=== PATIENT | female | born 1985 | race Caucasian/White ===

== ENCOUNTER 2022-10-30 06:52 | Outpatient (CLI) | payer OTHER, SELFPAY ==
--- NOTE | 2022-10-30 07:17 | US_ITS ---
WS: [id number] TRANSABDOMINAL PELVIC AND TRANSVAGINAL PELVIC ULTRASOUND HISTORY: ABDOMINAL PAIN COMPARISON: None available. Uterus: 9.0 cm x 6.2 cm x 4.9 cm. Top normal size uterus is anteverted. Small nabothian cysts. No fib roid or uterine mass. Endometrium: 1.0 cm. Normal endometrium. No mass or increased vascularity. Right ovary: 6.5 cm x 6.1 cm x 4.5 cm. Enlarged ovary with a complex cyst with thick wall thick wall cyst measures 3.9 x 5.3 x 4.1 cm. There is through transmission. This ovary sits deep within the cul- de-sac. There is normal vascularity within the adjacent ovary. Left ovary: 9.5 cm x 6.8 cm x 9.6 cm. Enlarged ovary with multiple homogeneous masses with through tr ansmission. There are multiple complex masses by septations. There is through transmission. The largest complex cystic mass measures 5.3 x 4.0 x 5.2 cm. The adjacent ovary has normal vasculari ty. No free fluid. US/US pelvic with transvaginal IMPRESSION: 1. Bilateral ovarian complex cystic masses. Most significant enlargement invol ves the LEFT ovary where there are multiple homogeneous masses with septations (O-RADS 2). 2. Recommendation: Even though these are probably benign and related to endome triomas or complex hemorrhagic cysts, 8-12 week transvaginal pelvic ultrasound follow-up is recommended. If no improvement at the 8-12 week follow-up ultrasou nd evaluation CERTIFIED PHARMACY TECH evaluation may be necessary.
== END 2022-10-30 06:53 | disposition home or self-care (01) ==
LOC: RAD 06:54
PROVIDERS: Family Provider Family Medicine; PCP Family Medicine; Visit Provider Nurse Practitioner
DX: N83.8 Other noninflammatory disorders of ovary, fallopian tube and broad ligament (principal)
CPT/HCPCS: 76830; 76856

== ENCOUNTER 2022-11-10 22:18 | Inpatient (IN) | payer OTHER, SELFPAY ==
[2022-11-10 22:37] VITALS: BP 107/72; PULSE 76; RESP 22; TEMP 36.2; O2SAT 99; BMI 33.4
--- NOTE | 2022-11-10 22:58 | CTR_ITS ---
PROCEDURE INFORMATION: Exam: CT Abdomen And Pelvis With Contrast Exam date and time: 11/10/2022 11:58 PM Age: 37 years old Clinical indication: Abdominal pain; Localized; Prior surgery; Surgery type: Appy; Patient HX: C/O severe lower abd/pelvic pain. ; Additional info: Abd pain TECHNIQUE: Imaging protocol: Computed tomography of the abdomen and pelvis with contrast. Radiation optimization: All CT scans at this facility use at least one of these dose optimization techniques: automated exposure control; mA and/or kV adjustment per patient size (includes targeted exams where dose is matched to clinical indication); or iterative reconstruction. Contrast material: OMNI 350; Contrast volume: 100 ml; Contrast route: INTRAVENOUS (IV); COMPARISON: 1. CT abdomen pelvis w con* [id number] 03/29/2018 9:20 PM 2. US pelvic with transvaginal 10/30/2022 7:32 AM RADIATION DOSE METRICS: Total DLP (mGy-cm): 921.9 FINDINGS: Liver: Normal. No mass. Gallbladder and bile ducts: Normal. No calcified stones. No ductal dilation. Pancreas: Normal. No ductal dilation. Spleen: Normal. No splenomegaly. Adrenal glands: Normal. No mass. Kidneys and ureters: Normal. No hydronephrosis. Stomach and bowel: Negative for bowel obstruction. No evidence of bowel perforation. Negative for pneumatosis intestinalis. No focal bowel mass. Appendix: Appendectomy. Intraperitoneal space: Small to moderate volume scattered pelvic free fluid without loculation. Negative for pneumoperitoneum. Scattered small volume free fluid in the lower abdominal mesentery. Vasculature: Unremarkable. No abdominal aortic aneurysm. Lymph nodes: Unremarkable. No enlarged lymph nodes. Urinary bladder: Unremarkable as visualized. Reproductive: Unremarkable size and appearance of the uterus. Negative for endometrial thickening. Complex multilocular bilateral cystic adnexal masses larger on left than right. Left-sided lesion about 6.3 cm x 5.2 cm in the transaxial plane. Right-sided lesion about 7.3 cm x 4.6 cm. Bones/joints: Unremarkable. No acute fracture. Soft tissues: Unremarkable. CT/CT abdomen pelvis w con* [id number] IMPRESSION: 1. Large multilocular cystic bilateral adnexal masses are redemonstrated when compared with recent pelvic ultrasound. No significant changes are seen, although difficult to compare across different modalities. 2. Free fluid seems to be increased when compared to the recent pelvic ultrasound of uncertain significance. Cyst rupture, torsion, or sequela of ovarian neoplasm cannot be excluded.
--- NOTE | 2022-11-10 22:59 | ED_ITS ---
HPI - Abdominal Pain General: Chief Complaint: Abdominal Pain Stated Complaint: ABD Pain Time Seen by Provider: 11/10/22 22:49 Source: patient Mode of arrival: ambulatory Limitations: no limitations History of Present Illness: 37-year-old female states that an hour ago she started having severe sudden left lower quadrant and suprapubic abdominal pain. States pain is very sharp in nature rates it a 9 out of 10 she is also had nausea vomiting she has had an appendectomy states she has had a history of ovarian cysts she denies any vaginal bleeding denies any worsening proving factors. Associated Symptoms: Reports nausea and vomiting; Denies chills, dysuria and fever(s) Review of Systems Const: Denies: fever(s), chills, body aches or change in appetite Eyes: Denies: blurry vision or eye discomfort ENMT: Denies: throat pain or dental pain Card: Denies: chest pain Resp: Denies: dyspnea GI: Reports: abdominal pain, nausea and vomiting : Denies: dysuria Musc: Denies: neck pain or back pain Skin/Breast: Denies: rash Neuro: Denies: headache(s) Psych: Denies: depression Ranjit/Lymph: Denies: easy bruising All/Imm: Denies: urticaria PFSH ED PFSH: Medical History Blood type O- Essential hypertension Not on medication. Fluctuates with weight. Surgical History H/O arthroscopic knee surgery (~2002) Right knee scope and cartilage removal History of appendectomy (~03/2018) Hx of breast reduction, elective (~1997) Bilateral. Performed at [facility] in [place], [place]. Family History Father Hypertension Heart disease Grandmother Diabetes PATERNAL Mother Hypercholesteremia Grandfather Hypercholesteremia MATERNAL Stroke MATERNAL Family/Other Breast cancer MATERNAL AUNTS Prostate cancer PATERNAL UNCLE Mesothelioma PATERNAL UNCLE Social History Smoking and tobacco status: former smoker Quit status (tobacco): has quit using tobacco Year quit tobacco: 2008 Former qu it date comment: CHEWED TOBACCO X 1 YEAR Alcohol intake: current Alcohol intake frequency: holidays/special occasions only Additional social history: well- balanced meals Physical Exam Const: COMMON NORMALS: no acute distress, patient oriented x3 and healthy appearing HENMT: COMMON NORMALS: normocephalic and atraumatic HEAD & SCALP: normocephalic and atraumatic Eye: COMMON NORMALS: Equal, round and reactive pupils present and EOMs intact bilaterally PUPIL: Yes Equal, round and reactive pupils present Neck/C-Spine: COMMON NORMALS: full ROM and supple Chest: COMMONS NORMALS: normal inspection of the chest and normal palpation of entire chest wall Resp: COMMON NORMALS: normal respiratory effort, No retractions, No use of accessory muscles and clear to auscultation bilaterally AUSCULTATION: clear to auscultation bilaterally Cardio: COMMON NORMALS: regular rate, regular rhythm and No murmurs present (Cardio) RATE: regular rate RHYTHM: regular rhythm GI: COMMON NORMALS: Normal to inspection, nondistended, normoactive bowel sounds present, Soft to palpation and no masses PALPATION: Yes Soft to palpation OTHER: llq and suprapubic tenderness Extremity: COMMON NORMALS: normal to inspection and full ROM Neuro: COMMON NORMALS: patient oriented x3, moves all extremities and no focal motor deficits Psych: COMMON NORMALS: mental status grossly normal, Normal thought process present and cooperative THOUGHT PROCESS: Normal thought process present Skin: COMMON NORMALS: no rashes or lesions noted and no wounds GENERAL SKIN EXAM: no rashes or lesions noted Course Vital Signs: Vital signs: Vital Signs Temperature 97.1 F L 11/10/22 22:37 Pulse Rate 81 11/11/22 03:30 Respiratory Rate 16 11/11/22 03:30 Blood Pressure 125/92 11/11/22 03:30 Pulse Oximetry 92 11/11/22 03:30 Oxygen Delivery Me thod 11/10/22 22:37 MDM - Abdominal Pain Medical Decision Making Patient presents here with abdominal pain likely from ovarian masses she has no signs of torsion but is having quite a bit of pain here I did speak to Dr. Yeh and will admit at this time. Lab Data 11/10/22 23:00 11/10/22 23:00 Labs/Radiology: Radiology Impressions Abdomen/Pelvis CT 11/10/22 22:58 IMPRESSION: 1. Large multilocular cystic bilateral adnexal masses are redemonstrated when compared with recent pelvic ultrasound. No significant changes are seen, although difficult to compare across different modalities. 2. Free fluid seems to be increased when compared to the recent pelvic ultrasound of uncertain significance. Cyst rupture, torsion, or sequela of ovarian neoplasm cannot be excluded. ADDENDUM: 11/11/22 0118 THIS REPORT CONTAINS FINDINGS THAT MAY BE CRITICAL TO PATIENT CARE. The findings were verbally communicated via telephone conference with SUSY VAUGHN at 1:17 AM SECOND WATCH SERGEANT on 11/11/2022. The findings were acknowledged and understood. Pelvic/Transvag US 11/11/22 01:16 IMPRESSION: 1. Redemonstration of bilateral adnexal heterogenous complex cystic masses measuring up to approximately 7.5 cm in diameter on the left and 8.0 cm in diameter on the right. These lesions appear mildly increased in size in complexity when compared with the prior exam performed on 10/30/2022. Findings are nonspecific, differential includes peritoneal inclusion cysts, bilateral endometriomas, bilateral paraovarian/paratubal complex cysts, and less likely tubal or ovarian carcinoma, and sarcoma. An MRI of the pelvis may be helpful for further evaluation if clinically indicated. 2. Uterine fibroids measuring up to 3.6 cm in diameter. 3. [id number] free fluid. ADDENDUM: 11/11/22 [id number] Color Doppler flow and phasic waveforms are demonstrated in the bilateral adnexa/soft tissue that is presumed to represent ovarian tissue. Laboratory Results WBC 7.9 10^3/uL (4.0-10.0) 11/10/22 23:00 RBC 4.62 10^6/uL (4.1-5.3) 11/10/22 23:00 Hgb 12.8 g/dL (11.5-15.3) 11/10/22 23:00 Hct 39.8 % (37.0-47.0) 11/10/22 23:00 MCV 86.1 fl (81-99) 11/10/22 23:00 MCH 27.7 pg (28.0-34.0) L 11/10/22 23:00 MCHC 32.2 g/dL (30.0-36.0) 11/10/22 23:00 RDW 13.1 % (12.1-15.1) 11/10/22 23:00 Plt Count 305 10^3/cmm (130-400) 11/10/22 23:00 MPV 8.4 fL (7.4-10.4) 11/10/22 23:00 Neut % (Auto) 75.4 % 11/10/22 23:00 Lymph % (Auto) 17.5 % 11/10/22 23:00 [place] % (Auto) 6.0 % 11/10/22 23:00 Eos % (Auto) 0.5 % 11/10/22 23:00 Baso % (Auto) 0.1 % 11/10/22 23:00 Neut # (Auto) 5.93 10^3/uL (1.8-7.7) 11/10/22 23:00 Lymph # (Auto) 1.4 10^3/uL (0.8-4.8) 11/10/22 23:00 [place] # (Auto) 0.5 10^3/uL (0.2-0.9) 11/10/22 23:00 Eos # (Auto) 0.0 10^3/uL (0.0-0.8) 11/10/22 23:00 Baso # (Auto) 0.0 10^3/uL (0.0-0.1) 11/10/22 23:00 Nucleated RBC % (auto) 0 % 11/10/22 23:00 Nucleated RBCs # 0.0 /100WBC 11/10/22 23:00 Sodium 139 mmol/L (136-145) 11/10/22 23:00 Potassium 3.6 mmol/L (3.5-5.1) 11/10/22 23:00 Chloride 103 mmol/L (98-107) 11/10/22 23:00 Carbon Dioxide 26 mmol/L (22-29) 11/10/22 23:00 Anion Gap 13.6 (5-19) 11/10/22 23:00 BUN 15 mg/dL (6-20) 11/10/22 23:00 Creatinine 0.7 mg/dL (0.5-0.9) 11/10/22 23:00 GFR Calculation 93.6 mL/min (90-130) 11/10/22 23:00 Glucose 137 mg/dL (65-115) H 11/10/22 23:00 Calculated Osmolality 291 mOsm/kg (285-295) 11/10/22 23:00 Calcium 9.1 mg/dL (8.5-10.5) 11/10/22 23:00 Total Bilirubin 0.2 mg/dL (0.15-1.2) 11/10/22 23:00 AST 14 U/L (0-32) 11/10/22 23:00 ALT 14 U/L (0-33) 11/10/22 23:00 Alkaline Phosphatase 69 U/L (35-105) 11/10/22 23:00 Total Protein 7.3 g/dL (6.6-8.7) 11/10/22 23:00 Albumin 4.2 g/dL (3.5-5.2) 11/10/22 23:00 Globulin 3.1 g/dL (1.3-4.6) 11/10/22 23:00 Lipase 34 U/L (13-60) 11/10/22 23:00 HCG, Qual Negative (Negative) 11/10/22 23:00 Urine Color Yellow (Yellow) 11/11/22 00:37 Urine Appearance Clear (CLEAR) 11/11/22 00:37 Urine pH 6.5 (5-7) 11/11/22 00:37 Ur Specific [place] 1.005 (1.005-1.030) 11/11/22 00:37 Urine Protein 1+ (Negative) H 11/11/22 00:37 Urine Glucose (UA) Norm (Normal) 11/11/22 00:37 Urine Ketones Negative (Negative) 11/11/22 00:37 Urine Blood Trace (Negative) H 11/11/22 00:37 Urine Nitrate Negative (Negative) 11/11/22 00:37 Urine Bilirubin Neg (Negative) 11/11/22 00:37 Urine Urobilinogen Norm mg/dL (Negative) 11/11/22 00:37 Ur Leukocyte Esterase Negative (Negative) 11/11/22 00:37 Urine RBC 0-4 /hpf (0-2) H 11/11/22 00:37 Urine WBC None /hpf (0-5) 11/11/22 00:37 Ur Squamous Epith Cells 0-4 /hpf (0-5) H 11/11/22 00:37 Amorphous Sediment Not Reportable 11/11/22 00:37 Urine Bacteria None /hpf (NONE) 11/11/22 00:37 Discharge Plan Discharge Patient Disposition: Admitted As Inpatient Admit Provider: Shantel Yeh Clinical Impression: Abdominal pain, Mass of ovary Condition: Stable Coding Level of Care Code ED 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
[2022-11-10] MEDS: ondansetron 2 mg/ML SDV 2 mL 4 MG IVP (23:15)
[2022-11-10] MEDS: sodium chloride 0.9% 1,000 ML 999 ML IV (23:15)
[2022-11-10] MEDS: morphine 4 mg/mL SDV 1 mL IVP (23:15)
[2022-11-10 23:16] VITALS: BP 110/67; PULSE 67; RESP 16; O2SAT 94
[2022-11-10 23:30] VITALS: BP 124/71; PULSE 77; RESP 14; O2SAT 97
[2022-11-10 23:38] LABS: Basophils % 0.1 %; Eosinophils % 0.5 %; Hematocrit 39.8 % (37.0-47.0); Hemoglobin 12.8 g/dL (11.5-15.3); Lymphocytes # 1.4 10^3/uL (0.8-4.8); Lymphocytes % 17.5 %; Mean Corpuscular HGB Conc 32.2 g/dL (30.0-36.0); Mean Corpuscular Hemoglobin 27.7 pg (28.0-34.0); Mean Corpuscular Volume 86.1 fl (81-99); Mean Platelet Volume 8.4 fL (7.4-10.4); Monocytes # 0.5 10^3/uL (0.2-0.9); Neutrophils # 5.93 10^3/uL (1.8-7.7); Neutrophils % 75.4 %; Nucleated Red Blood Cells % 0 %; Platelet Count 305 10^3/cmm (130-400); Red Blood Count 4.62 10^6/uL (4.1-5.3); Red Cell Distribution Width 13.1 % (12.1-15.1); White Blood Count 7.9 10^3/uL (4.0-10.0)
[2022-11-10 23:51] LABS: HCG, Serum Qual Negative (Negative)
[2022-11-10 23:58] LABS: Alanine Aminotransferase 14 U/L (0-33); Albumin Level 4.2 g/dL (3.5-5.2); Alkaline Phosphatase 69 U/L (35-105); Anion Gap 13.6 (5-19); Aspartate Amino Transferase 14 U/L (0-32); Blood Urea Nitrogen 15 mg/dL (6-20); Calcium 9.1 mg/dL (8.5-10.5); Carbon Dioxide 26 mmol/L (22-29); Chloride 103 mmol/L (98-107); Globulin 3.1 g/dL (1.3-4.6); Glomerular Filtration Rate 93.6 mL/min (90-130); Glucose 137 mg/dL (65-115); Lipase 34 U/L (13-60); Osmolality Calculated 291 mOsm/kg (285-295); Potassium 3.6 mmol/L (3.5-5.1); Sodium 139 mmol/L (136-145); Total Bilirubin 0.2 mg/dL (0.15-1.2); Total Protein 7.3 g/dL (6.6-8.7)
[2022-11-11] VITALS (31 sets, daily range): BP systolic 115–156; BP diastolic 68–100; PULSE 67–105; RESP 14–19; TEMP 36.5–37.4; O2SAT 89–100; BMI 32.9
[2022-11-11] MEDS: iohexol 350 mg/mL 500 mL Btl (per mL) IV (00:19)
[2022-11-11] MEDS: HYDROmorphone 1 mg/mL INJ 1 mL IVP ×5 (00:21→11:20)
[2022-11-11 01:13] LABS: Add Urine Microscopic? YES; Bilirubin Urine Neg (Negative); Blood Urine Trace (Negative); Glucose Urine UA Norm (Normal); Ketones Urine Negative (Negative); Leukocyte Esterase Urine Negative (Negative); Nitrate Urine Negative (Negative); Protein Urine 1+ (Negative); Specific Gravity, Urine 1.005 (1.005-1.030); Urine Appearance Clear (CLEAR); Urine Color Yellow (Yellow); Urobilinogen Urine Norm (Negative); pH Urine 6.5 (5-7)
--- NOTE | 2022-11-11 01:16 | USR_ITS ---
PROCEDURE INFORMATION: Exam: US Pelvis Complete, Transabdominal and US Pelvis, Transvaginal Exam date and time: 11/11/2022 1:47 AM Age: 37 years old Clinical indication: Pain; Prior surgery; Surgery date: 6+ months; Surgery type: Appendectomy 2018; Patient HX: Long history of chronic dysmenorrhea for many years, long history of hypermenorrhea. G4-p2-a2-l2 lmp = 11-9-22; Additional info: Pain/cyst TECHNIQUE: Imaging protocol: Real-time complete transabdominal and transvaginal pelvic ultrasound with image documentation. Transvaginal imaging was used for better evaluation of the endometrium, adnexa, and/or cervix. COMPARISON: US pelvic with transvaginal 10/30/2022 7:32 AM FINDINGS: Uterus: The uterus measures the 8.2 cm x 3.7 cm x 5.2 cm. The endometrial thickness is 0.9 cm. Multiple intramural fibroids are noted, the largest measuring up to 3.6 cm in diameter. Right ovary/adnexa: The right ovary measures 4.0 cm x 4.5 cm x 4.2 cm and appears to contain two cystic structures measuring up to 1.6 cm and 2.2 cm in diameter respectively. Right adnexal complex heterogenous predominately hypoechoic soft tissue density measuring up to approximately 8 cm x 4 cm x 4 cm. Left ovary/adnexa: The left ovary measures 3.8 cm by 2.5 cm x 3.2 cm appears to contain a single 1.8 cm echogenic cystic structure. Left adnexal irregular heterogenous soft tissue density measuring 7.5 cm x 6.0 cm x 6.0 cm. The Intraperitoneal space: A small to moderate amount hypoechoic of free fluid is seen within the dependent portion the pelvis. Urinary bladder: Dedicated images of the urinary bladder were not obtained. US/US pelvic with transvaginal IMPRESSION: 1. Redemonstration of bilateral adnexal heterogenous complex cystic masses measuring up to approximately 7.5 cm in diameter on the left and 8.0 cm in diameter on the right. These lesions appear mildly increased in size in complexity when compared with the prior exam performed on 10/30/2022. Findings are nonspecific, differential includes peritoneal inclusion cysts, bilateral endometriomas, bilateral paraovarian/paratubal complex cysts, and less likely tubal or ovarian carcinoma, and sarcoma. An MRI of the pelvis may be helpful for further evaluation if clinically indicated. 2. Uterine fibroids measuring up to 3.6 cm in diameter. 3. [id number] free fluid.
[2022-11-11 01:34] LABS: Add Urine Culture? No; RBC Urine 0-4 /hpf (0-2); Squamous Epithelial Cell Urine 0-4 /hpf (0-5)
[2022-11-11] MEDS: ondansetron 2 mg/ML SDV 2 mL 4 MG IVP ×2 (04:22→09:24)
[2022-11-11] MEDS: lactated ringers 1,000 ML 125 ML IV (05:33)
[2022-11-11] MEDS: metoclopramide 5 mg/mL SDV 2 mL 10 MG IVP ×2 (06:04→11:17)
--- NOTE | 2022-11-11 09:12 | P.CONIM_ITS ---
Providers/Reason for Consult Consulting Physican/Specialty*: Dr Yeh CLINICAL REHABILITATION SPECIALIST Reason for Consult*: pelvic pain and ovarian masses Requesting Physcian: Dr. Arora Attending Physician: Shantel Yeh MD Primary Care Provider: Spencer Vides MD CLINICAL REHABILITATION SPECIALIST Consult HPI History of Present Illness Chika Angela is a 37 year old female who reports that she started having pelvic pain in February of this year. She attempted to make an appointment in [place], at the [facility], but there was a year wait and she is scheduled to see them next March. She reports that there is pain and fullness. She finally saw someone at the [facility] and they ordered an ultrasound. That ultrasound showed multicystic, complex ovaries. Last night around 9:00, she had a sudden worsening of pain. She stated that it was unbearable. She came to the ER. She had a CT and ultrasound performed. This showed free fluid in the pelvis and the ovarian masses had grown in size. There are solid and cystic components to the masses. They are fairly symmetric and measure 5 and 6 cm. I spoke with the radiologist who did not think these were a torsion(s). She felt that these are likely hemorrhagic cysts that are bleeding. The CT scan did not show any ome ntal caking. While ovarian malignancy is always a possibility with these findings, it is lower on the list than torsion and bleeding hemorrhagic cyst. Review of Systems General: Reports: 10 or more systems reviewed and unremarkable except in HPI and below Medications/Allergies Home Medications Medication Instructions Recorded Confirmed Last Taken Type No Known Home Medications 01/24/21 01/24/21 Unknown History Allergies Allergy/AdvReac Type Severity Reaction Status Date / Time No Known Allergies Allergy Verified 01/24/21 13:05 Current Medications Generic Name Dose Route Start Last Admin Trade Name Freq PRN Reason Stop Dose Admin Hydromorphone HCl 1 mg 11/11/22 05:02 11/11/22 06:04 Hydromorphone 1 Mg/Ml Inj 1 Ml IVP 1 mg Q2H PRN Administration PAIN Lactated Ringer's 1,000 mls @ 125 mls/hr 11/11/22 05:15 11/11/22 05:33 Lactated Ringers IV 125 mls/hr .Q8H ENIO Administration Metoclopramide HCl 10 mg 11/11/22 05:02 11/11/22 06:04 Metoclopramide 5 Mg/Ml Sdv 2 Ml IVP 10 mg Q6H PRN Administration NAUSEA AND VOMITING PFSH CLINICAL REHABILITATION SPECIALIST PFSH: Medical History Blood type O- Essential hypertension Not on medication. Fluctuates with weight. Surgical History H/O arthroscopic knee surgery (~2002) Right knee scope and cartilage removal History of appendectomy (~03/2018) Hx of breast reduction, elective (~1997) Bilateral. Performed at [facility] [place] [facility] in [place], [place]. Family History Father Hypertension Heart disease Grandmother Diabetes PATERNAL Mother Hypercholesteremia Grandfather Hypercholesteremia MATERNAL Stroke MATERNAL Family/Other Breast cancer MATERNAL AUNTS Prostate cancer PATERNAL UNCLE Mesothelioma PATERNAL UNCLE Social History Smoking and tobacco status: former smoker Quit status (tobacco): has quit using tobacco Year quit tobacco: 2008 Former quit date comment: CHEWED TOBACCO X 1 YEAR Alcohol intake: current Alcohol intake frequency: holidays/special occasions only Additional social history: well- balanced meals Other Female Reproductive History: Hx Age of Menarche: 11 Duration of men ses: 3-5 days Cycle Length: 30 DAYS Vitals/I&O/Wt Last Vital Signs Temp 97.1 F L 11/10/22 22:37 Pulse 87 11/11/22 06:17 Resp 16 11/11/22 06:17 BP 122/79 11/11/22 06:17 Pulse Ox 95 11/11/22 06:17 O2 Del Method 11/11/22 06:17 11/10/22 11/11/22 11/11/22 22:59 06:59 14:59 Intake Total 1000 / 1000 Balance 1000 / 1000 Weight last 48 hrs Weight 220 lb Weight 220 lb Physical Exam Narrative: The patient is in her bed. She seems comfortable. She is able to provide a good history. Const: COMMON NORMALS: no acute distress, patient oriented x3, no limitations, healthy appearing, alert and well nourished GENERAL APPEARANCE: cooperative, comfortable, well kempt and well developed ORIENTATION/CONSCIOUSNESS: Yes awake, Yes oriented to person, Yes oriented to place and Yes oriented to time Resp: COMMON NORMALS: normal respiratory effort EFFORT & INSPECTION: Yes able to speak in complete sentences GI: COMMON NORMALS: Soft to palpation INSPECTION: Yes normal to inspection PALPATION: Yes Soft to palpation, Yes Tenderness to palpation present (GI), Yes Guarding due to palpation present (GI) and Yes Rebound tenderness present Extremity: COMMON NORMALS: no calf tenderness Neuro: COMMON NORMALS: patient oriented x3 SENSORIUM/ORIENTATION: Yes alert, Yes oriented to person, Yes oriented to place and Yes oriented to time Psych: COMMON NORMALS: mental status grossly normal, Normal thought process present, cooperative, normal affect and speech normal APPEARANCE: Yes well kempt SPEECH: Yes normal speech THOUGHT PROCESS: Normal thought process present Data 11/10/22 23:00 11/10/22 23:00 A&P Assessment and plan (1) Abdominal pain: Plan to control pain with IV pain medication NPO Plan to take for surgery today. (2) Mass of ovary: Coding Level of Care Code Acute Spanish Medical Interpreter for [facility] Fwd Exam Detailed Diagnoses Abdominal pain R10.9 Mass of ovary N83.8
--- NOTE | 2022-11-11 13:28 | P.ANESASSM_ITS ---
Pre-Anesthetic Assessment Height/Weight: Height 1.74 m Weight 99.79 kg Temp Pulse Resp BP Pulse Ox O2 Del Method 99.3 F 105 H 15 129/76 92 11/11/22 12:25 11/11/22 12:25 11/11/22 12:25 11/11/22 12:25 11/11/22 12:25 11/11/22 12:25 Preop Diagnosis: abdominal pain, adnexal masses Operation Date: 11/11/22 13:30 Proposed Procedures p Laparoscopy(Not Applicable) - Shantel Yeh MD Familial anesthetic complications: None Was Beta Negrito taken within 24 hours: N/A Was Clonidine taken within 24 hours: N/A Last intake: > 8hrs Social No alcohol and No tobacco Exam alert, oriented x 3, clear to auscultation bilaterally and regular rate & rhythm Airway Mallampati: Class II Dentition: full Metabolic most likely flu (+) - her son tested positive and she says she's feeling sick now Anesthetic Plan ASA status: 2 Anesthesia: General Risk of > 500 ml blood loss (7ml/kg in children): No Medications/Allergies Home Medications Medication Instructions Recorded Confirmed Last Taken Type No Known Home Medications 01/24/21 01/24/21 Unknown History Allergies Allergy/AdvReac Type Severity Reaction Status Date / Time No Known Allergies Allergy Verified 01/24/21 13:05 Current Medications Generic Name Dose Route Start Last Admin Trade Name Freq PRN Reason Stop Dose Admin Hydromorphone HCl 1 mg 11/11/22 05:02 11/11/22 11:20 Hydromorphone 1 Mg/Ml Inj 1 Ml IVP 1 mg Q2H PRN Administration PAIN Lactated Ringer's 1,000 mls @ 125 mls/hr 11/11/22 05:15 11/11/22 05:33 Lactated Ringers IV 125 mls/hr .Q8H ENIO Administration Metoclopramide HCl 10 mg 11/11/22 05:02 11/11/22 11:17 Metoclopramide 5 Mg/Ml Sdv 2 Ml IVP 10 mg Q6H PRN Administration NAUSEA AND VOMITING Morphine Sulfate 4 mg 11/11/22 04:58 11/11/22 09:17 Morphine 2 Mg/Ml Syr 1 Ml IVP 4 mg Q4H PRN Administration SEVERE PAIN Ondansetron HCl 4 mg 11/11/22 04:53 11/11/22 09:24 Ondansetron 2 Mg/Ml Sdv 2 Ml IVP 4 mg Q6H PRN Administration NAUSEA AND VOMITING PFSH Anesthesia Medical History Blood type O- Essential hypertension Not on medication. Fluctuates with weight. Surgical History H/O arthroscopic knee surgery (~2002) Right knee scope and cartilage removal History of appendectomy (~03/2018) Hx of breast reduction, elective (~1997) Bilateral. Performed at [facility] in [place], [place]. Family History Father Hypertension Heart disease Grandmother Diabetes PATERNAL Mother Hypercholesteremia Grandfather Hypercholesteremia MATERNAL Stroke MATERNAL Family/Other Breast cancer MATERNAL AUNTS Prostate cancer PATERNAL UNCLE Mesothelioma PATERNAL UNCLE Social History Smoking and tobacco status: former smoker Quit status (tobacco): has quit using tobacco Year quit tobacco: 2008 Former quit date comment: CHEWED TOBACCO X 1 YEAR Alcohol intake: current Alcohol intake frequency: holidays/special occasions only Additional social history: well- balanced meals Data Anesthesia 11/10/22 23:00 11/10/22 23:00 Short CBC 11/10/22 Range/Units 23:00 WBC 7.9 (4.0-10.0) 10^3/uL Hgb 12.8 (11.5-15.3) g/dL Hct 39.8 (37.0-47.0) % MCV 86.1 (81-99) fl Plt Count 305 (130-400) 10^3/cmm Neut % (Auto) 75.4 % Neut # (Auto) 5.93 (1.8-7.7) 10^3/uL BMP 11/10/22 23:00 Sodium 139 Potassium 3.6 Chloride 103 Carbon Dioxide 26 BUN 15 Creatinine 0.7 Glucose 137 H Calcium 9.1 Liver Function 11/10/22 Range/Units 23:00 Total Bilirubin 0.2 (0.15-1.2) mg/dL AST 14 (0-32) U/L ALT 14 (0-33) U/L Alkaline Phosphatase 69 (35-105) U/L Albumin 4.2 (3.5-5.2) g/dL Urine 11/11/22 Range/Units 00:37 Urine Color Yellow (Yellow) Urine Appearance Clear (CLEAR) Urine pH 6.5 (5-7) Ur Specific [place] 1.005 (1.005-1.030) Urine Protein 1+ H (Negative) Urine Glucose (UA) Norm (Normal) Urine Ketones Negative (Negative) Urine Nitrate Negative (Negative) Urine Bilirubin Neg (Negative) Ur Leukocyte Esterase Negative (Negative) Urine RBC 0-4 H (0-2) /hpf Urine WBC None (0-5) /hpf Cardiac Studies: No Data to Display
--- NOTE | 2022-11-11 13:30 | PC.NURSE ---
Pt and visitors to surgery at this time.
[2022-11-11] MEDS: sodium chloride 0.9% 1,000 ML 30 ML IV (13:41)
[2022-11-11] MEDS: phenazopyridine 100 mg Tablet 200 MG PO ×2 (13:42→20:58)
[2022-11-11] MEDS: acetaminophen 1,000 MG/100 ML PIGGYBACK 400 MG IV (13:48)
[2022-11-11] MEDS: ceFAZolin 2,000 MG in sodium chloride 0.9% (plus) 50 ML 100 MG IV ×2 (13:49→21:33)
--- NOTE | 2022-11-11 15:02 | SUR.OPER ---
[id number] pt family () called and notified of surgery conversion to open procedure
[2022-11-11] MEDS: miSOPROStol 200 mcg Tablet 800 MCG VAGINAL (15:17)
[2022-11-11 16:01] LABS: Add Urine Microscopic? YES; Bilirubin Urine Neg (Negative); Blood Urine Trace (Negative); Glucose Urine UA Norm (Normal); Ketones Urine Negative (Negative); Leukocyte Esterase Urine Negative (Negative); Nitrate Urine Negative (Negative); Protein Urine Neg (Negative); RBC Urine RARE /hpf (0-2); Squamous Epithelial Cell Urine RARE /hpf (0-5); Sulfosalicylic Acid Urine Negative (Negative); Urine Appearance Clear (CLEAR); Urine Color Yellow (Yellow); Urobilinogen Urine Neg (Negative); WBC Urine 0-4 /hpf (0-5); pH Urine 8 (5-7)
[2022-11-11 16:02] LABS: Add Urine Culture? No; Amorphous Sediment Urine 1+ /hpf; Mucus Urine 1+ /hpf
--- NOTE | 2022-11-11 16:09 | P.OP_ITS ---
Operative Report Date of procedure: November 11, 2022 Pre-op diagnosis: Preop Diagnosis abdominal pain, adnexal masses Post-op diagnosis: same Post-op diagnosis: same with endometriosis Post-op findings: severe pelvic adhesions involving uterus, bowel, bilateral ovaries, bladder Procedure done: diagnostic laparoscopy with laparotomy and removal of left tube and ovary Specimens removed/disposition: left tube and ovary to pathology Surgeon: Shantel Yeh Anesthesia: General Estimated blood loss (mL): 400 Estimated blood loss: minimal blood loss during surgery. 400 ml of blood in the abdomen IV fluids (mL): 1,500 Urine output (mL): 200 Complications: none Findings: completely adherent pelvis containing uterus, bowel, bladder, bilateral tubes and ovaries. Ruptured chocolate cyst from the right ovary. current bleeding from the right ovary Condition: stable Disposition: floor Brief History: The patient had been having pelvic pain since February. Her pain worsened last night to the point that it was unbearable. She presented to the ER. Imaging showed large bilateral ovarian masses. Procedure: The patient was taken to the operating room where general anesthesia was administered and found to be adequate. She was prepped and draped in the normal sterile fashion in the dorsal lithotomy position in [facility]. A Peters catheter was placed. A weighted speculum was placed into the vagina and the anterior lip of the cervix was grasped with a single tooth tenaculum. The Zumi uterine manipulator was placed. The weighted speculum was removed. The gloves were changed and attention was turned to the abdomen. A 5 mm infraumbilical incision was made. Using a 5 mm port with the camera, the port was placed into the abdomen. The abdomen was insufflated. One low, lateral 5 mm ports were placed on the left side under direct visualization from the camera. The pelvis was frozen with adhesions, containing the bowel, uterus, bladder and bilateral tubes and ovaries. The right tube and ovary were completely adhesed tothe fundus of the uterus as well as a large segment of the colon. Using the suction-company laundry worker, 200 ml of old blood was removed from the pelvis. The pelvis was irrigated and suctioned copiously. There were no good planes visualized, so, the surgery was converted to an open procedure. The zumi uterine manipulator was removed. A Pfannenstiel skin incision was made and carried down to the underlying layer of fascia. The fascia was nicked in the midline and extended laterally with the Perkins scissors. The fascia was then tented up and the rectus muscles dissected off sharply. The rectus muscles were in the midline and the abdomen entered bluntly with the digit. This peritoneal incision was extended superiorly and inferiorly with good visualization of the bladder. The O'Benjamin- O'Bruce retractor was placed and the bowel packed away as best it could be with all of the adhesions. I asked for general surgery's help due to the involvement of the bowel. Dr. Vincent assisted. The right tube and ovary was freed from the uterus and the sigmoid colon enough to clamp the infundibulopelvic ligament and remove the complex. The pelvis was explored to assure there was no active bleeding. The pelvis was copiously irrigated. The left tube and ovar were encased with adhesions from the bowel. It was palpated and determined to be normal size and caliber. The uterus was not able to be freed from the bowel. It was adherent with a large, thick adhesion. The decision was made to close the patient and get her an appointment with mechanical engineering professor/oncology to have her surgery performed. There was too much risk in damage to the bowel to continue. There was excellent hemostasis. The O'Benjamin- O'Bruce retractor as well as the packing was removed. The peritoneum was closed with 3-0 Monocryl in a running fashion. The fascia was closed with 0 Vicryl in a running fashion with 2 separate sutures overlapping in the midline. The skin was closed with absorbable radha. The patient tolerated the procedure well. Sponge lap and needle counts were correct x2. She was taken to the recovery room in stable condition.
[2022-11-11] MEDS: fentaNYL 50 mcg/mL INJ 2mL IVP (16:30)
--- NOTE | 2022-11-11 16:34 | ANE.PACU2 ---
Inpatient post-anesthesia follow up: Airway intact: Yes Vital signs: Temperature 99.3 F Pulse Rate 105 Respiratory Rate 15 Blood Pressure 129/76 Pulse Oximetry 92 Oxygen Delivery Me thod Room Air Oxygen Flow Rate 6 Fraction of Inspir ed Oxygen Hydration adequate: Yes Nausea and vomiting: No Pain level: 1 Mental status: Baseline
--- NOTE | 2022-11-11 17:30 | PC.NURSE ---
Pt returned from OR at this time
[2022-11-11] MEDS: ketorolac 30 mg/mL INJ IVP ×2 (18:04→23:56)
[2022-11-11] MEDS: docusate sodium 100 mg Capsule PO (18:04)
[2022-11-11] MEDS: HYDROcodone-acetaminophen 5-325 mg Tablet PO ×2 (18:04→22:29)
[2022-11-11] MEDS: dextrose 5%-lactated ringers 1,000 ML 125 ML IV (18:34)
[2022-11-12] MEDS: dextrose 5%-lactated ringers 1,000 ML 125 ML IV (03:25)
[2022-11-12 04:05] VITALS: BP 138/77; PULSE 85; RESP 15; TEMP 36.8; O2SAT 93
[2022-11-12] MEDS: HYDROcodone-acetaminophen 5-325 mg Tablet PO ×3 (04:06→17:08)
[2022-11-12 06:03] LABS: Hemoglobin 10.3 g/dL (11.5-15.3); Mean Corpuscular HGB Conc 32.2 g/dL (30.0-36.0); Mean Corpuscular Hemoglobin 28.1 pg (28.0-34.0); Mean Corpuscular Volume 87.2 fl (81-99); Mean Platelet Volume 8.4 fL (7.4-10.4); Platelet Count 176 10^3/cmm (130-400); Red Blood Count 3.67 10^6/uL (4.1-5.3); Red Cell Distribution Width 13.6 % (12.1-15.1); White Blood Count 10.1 10^3/uL (4.0-10.0)
[2022-11-12] MEDS: ketorolac 30 mg/mL INJ IVP (06:07)
[2022-11-12] MEDS: ceFAZolin 2,000 MG in sodium chloride 0.9% (plus) 50 ML 100 MG IV (06:07)
--- NOTE | 2022-11-12 07:09 | P.PN_ITS ---
Subjective Subjective: The patient is doing ok this morning. She has not been up to walk yet, but reports that her pain is manageable. She is tolerating a regular diet. Vitals/I&O/Wt Last Vital Signs Temp 98.3 F 11/12/22 04:05 Pulse 85 11/12/22 04:05 Resp 15 11/12/22 04:05 BP 138/77 11/12/22 04:05 Pulse Ox 93 11/12/22 04:05 O2 Del Method 11/12/22 04:05 O2 Flow Rate 2 11/11/22 20:34 11/11/22 11/12/22 11/12/22 22:59 06:59 14:59 Intake Total 2150 / 3300 1800 / 5100 Output Total 1700 / 1700 950 / 2650 Balance 450 / 1600 850 / 2450 Weight last 48 hrs Weight 220 lb Weight 220 lb Physical Exam Narrative: The patient is resting in bed with a heating pad in place Const: COMMON NORMALS: no acute distress, patient oriented x3, no limitations, healthy appearing, alert and well nourished GENERAL APPEARANCE: cooperative, comfortable, well kempt and well developed ORIENTATION/CONSCIOUSNESS: Yes awake, Yes oriented to person, Yes oriented to place and Yes oriented to time Resp: COMMON NORMALS: normal respiratory effort EFFORT & INSPECTION: Yes able to speak in complete sentences GI: COMMON NORMALS: Soft to palpation and non-tender PALPATION: Yes Soft to palpation Extremity: COMMON NORMALS: no calf tenderness Neuro: COMMON NORMALS: patient oriented x3 SENSORIUM/ORIENTATION: Yes alert, Yes oriented to person, Yes oriented to place and Yes oriented to time Psych: COMMON NORMALS: mental status grossly normal, Normal thought process present, cooperative, normal affect and speech normal APPEARANCE: Yes well kempt SPEECH: Yes normal speech THOUGHT PROCESS: Normal thought process present Urinary Catheter Management: Peters: Cath Placed During This Visit: yes, but has since been removed by the nurse Reason for Continuing Indwelling Catheter: Decision to DC Catheter Urinary Catheter Date of Insertion: 11/11/22 Urinary Catheter Time of Insertion: 14:10 Date Urinary Catheter Removed: 11/12/22 Time Urinary Catheter Discontinued: 05:40 Data 11/12/22 05:51 11/10/22 23:00 A&P Assessment and plan (1) Endometriosis: normal postoperative care will get patient an appointment to follow up with medical assistant ob gyn/onc ambulate today anticipate home tomorrow morning. Attestations Medical Necessity Statement*: The patient will be here two midnights. She had an open abdominal procedure. Coding Level of Care Code Acute Harness Repairer for [facility] Fwd Diagnoses Endometriosis N80.9
[2022-11-12] MEDS: acetaminophen 325 mg Tablet 650 MG PO (09:29)
[2022-11-12] MEDS: phenazopyridine 100 mg Tablet 200 MG PO (09:30)
[2022-11-12] MEDS: docusate sodium 100 mg Capsule PO ×2 (09:30→17:07)
[2022-11-12 09:36] VITALS: BP 116/72; PULSE 80; RESP 16; TEMP 36.7; O2SAT 92
[2022-11-12] MEDS: ibuprofen 800 mg tablet PO (12:55)
[2022-11-12] MEDS: simethicone 80 mg Chew PO (12:57)
--- NOTE | 2022-11-12 15:57 | PM.DCS ---
Discharge Providers Date of Admission: 11/11/22 04:12 Date of Discharge: November 12, 2022 Attending Provider at Admission: Shantel Yeh MD Attending Provider at Discharge: Shantel Yeh MD Primary Care Provider: Spencer Vides MD Diagnoses at Discharge Discharge Diagnosis (1) Endometriosis: Status: Acute Reason for Visit Reason for Visit: ABD Pain Hospital Course Hospital Course The patient was admitted for intense abdominal pain.. She was found to have bilateral cystic masses in her adnexae. She initially had laparoscopic surgery, but was noted to have such bad endometriosis, that an open procedure was performed. The right tube and ovary were removed, but in spite of general surgery's assistance, I was unable to free up the bowel that was adherent to the uterus. The patient will be referred to brake repairer hydraulic oncology for her procedure. She did well postoperatively and requested discharge on the evening of post op day #1 Physical Exam Urinary Catheter Management: Peters: Cath Placed During This Visit: yes, but has since been removed by the nurse Reason for Continuing Indwelling Catheter: Decision to DC Catheter Urinary Catheter Date of Insertion: 11/11/22 Urinary Catheter Time of Insertion: 14:10 Date Urinary Catheter Removed: 11/12/22 Time Urinary Catheter Discontinued: 05:40 Discharge Data Studies Completed and Pending Completed Studies During Hospitalization Category Date Time Status CT abdomen pelvis w con* [id number] Stat Cat Scan 11/10/22 22:58 Completed US pelvic with transvaginal Stat Ultrasound 11/11/22 01:16 Completed Pending at discharge Category Date Time Status ES surgery / GI images Routine Exams 11/11/22 Taken Pathology: Surgical [PTH] Routine Pth 11/11/22 16:21 Received Radiology Impressions Abdomen/Pelvis CT 11/10/22 22:58 IMPRESSION: 1. Large multilocular cystic bilateral adnexal masses are redemonstrated when compared with recent pelvic ultrasound. No significant changes are seen, although difficult to compare across different modalities. 2. Free fluid seems to be increased when compared to the recent pelvic ultrasound of uncertain significance. Cyst rupture, torsion, or sequela of ovarian neoplasm cannot be excluded. ADDENDUM: 11/11/22 0118 THIS REPORT CONTAINS FINDINGS THAT MAY BE CRITICAL TO PATIENT CARE. The findings were verbally communicated via telephone conference with SUSY VAUGHN at 1:17 AM PER DIEM REGISTERED NURSE on 11/11/2022. The findings were acknowledged and understood. Pelvic/Transvag US 11/11/22 01:16 IMPRESSION: 1. Redemonstration of bilateral adnexal heterogenous complex cystic masses measuring up to approximately 7.5 cm in diameter on the left and 8.0 cm in diameter on the right. These lesions appear mildly increased in size in complexity when compared with the prior exam performed on 10/30/2022. Findings are nonspecific, differential includes peritoneal inclusion cysts, bilateral endometriomas, bilateral paraovarian/paratubal complex cysts, and less likely tubal or ovarian carcinoma, and sarcoma. An MRI of the pelvis may be helpful for further evaluation if clinically indicated. 2. Uterine fibroids measuring up to 3.6 cm in diameter. 3. Gvat-ak-csbswruu free fluid. ADDENDUM: 11/11/22 0353 Color Doppler flow and phasic waveforms are demonstrated in the bilateral adnexa/soft tissue that is presumed to represent ovarian tissue. Laboratory Results WBC 10.1 10^3/uL (4.0-10.0) H 11/12/22 05:51 RBC 3.67 10^6/uL (4.1-5.3) L 11/12/22 05:51 Hgb 10.3 g/dL (11.5-15.3) L 11/12/22 05:51 Hct 32.0 % (37.0-47.0) L 11/12/22 05:51 MCV 87.2 fl (81-99) 11/12/22 05:51 MCH 28.1 pg (28.0-34.0) 11/12/22 05:51 MCHC 32.2 g/dL (30.0-36.0) 11/12/22 05:51 RDW 13.6 % (12.1-15.1) 11/12/22 05:51 Plt Count 176 10^3/cmm (130-400) 11/12/22 05:51 MPV 8.4 fL (7.4-10.4) 11/12/22 05:51 Neut % (Auto) 75.4 % 11/10/22 23:00 Lymph % (Auto) 17.5 % 11/10/22 23:00 [place] % (Auto) 6.0 % 11/10/22 23:00 Eos % (Auto) 0.5 % 11/10/22 23:00 Baso % (Auto) 0.1 % 11/10/22 23:00 Neut # (Auto) 5.93 10^3/uL (1.8-7.7) 11/10/22 23:00 Lymph # (Auto) 1.4 10^3/uL (0.8-4.8) 11/10/22 23:00 [place] # (Auto) 0.5 10^3/uL (0.2-0.9) 11/10/22 23:00 Eos # (Auto) 0.0 10^3/uL (0.0-0.8) 11/10/22 23:00 Baso # (Auto) 0.0 10^3/uL (0.0-0.1) 11/10/22 23:00 Nucleated RBC % (auto) 0 % 11/10/22 23:00 Nucleated RBCs # 0.0 /100WBC 11/10/22 23:00 Sodium 139 mmol/L (136-145) 11/10/22 23:00 Potassium 3.6 mmol/L (3.5-5.1) 11/10/22 23:00 Chloride 103 mmol/L (98-107) 11/10/22 23:00 Carbon Dioxide 26 mmol/L (22-29) 11/10/22 23:00 Anion Gap 13.6 (5-19) 11/10/22 23:00 BUN 15 mg/dL (6-20) 11/10/22 23:00 Creatinine 0.7 mg/dL (0.5-0.9) 11/10/22 23:00 GFR Calculation 93.6 mL/min (90-130) 11/10/22 23:00 Glucose 137 mg/dL (65-115) H 11/10/22 23:00 Calculated Osmolality 291 mOsm/kg (285-295) 11/10/22 23:00 Calcium 9.1 mg/dL (8.5-10.5) 11/10/22 23:00 Total Bilirubin 0.2 mg/dL (0.15-1.2) 11/10/22 23:00 AST 14 U/L (0-32) 11/10/22 23:00 ALT 14 U/L (0-33) 11/10/22 23:00 Alkaline Phosphatase 69 U/L (35-105) 11/10/22 23:00 Total Protein 7.3 g/dL (6.6-8.7) 11/10/22 23:00 Albumin 4.2 g/dL (3.5-5.2) 11/10/22 23:00 Globulin 3.1 g/dL (1.3-4.6) 11/10/22 23:00 Lipase 34 U/L (13-60) 11/10/22 23:00 HCG, Qual Negative (Negative) 11/10/22 23:00 Urine Color Yellow (Yellow) 11/11/22 14:10 Urine Appearance Clear (CLEAR) 11/11/22 14:10 Urine pH 8 (5-7) H 11/11/22 14:10 Ur Specific [place] 1.010 (1.005-1.030) 11/11/22 14:10 Urine Protein Neg (Negative) 11/11/22 14:10 Urine Glucose (UA) Norm (Normal) 11/11/22 14:10 Urine Ketones Negative (Negative) 11/11/22 14:10 Urine Blood Trace (Negative) H 11/11/22 14:10 Urine Nitrate Negative (Negative) 11/11/22 14:10 Urine Bilirubin Neg (Negative) 11/11/22 14:10 Prot Sulfosalicylic Acd Negative (Negative) 11/11/22 14:10 Urine Urobilinogen Neg mg/dL (Negative) 11/11/22 14:10 Ur Leukocyte Esterase Negative (Negative) 11/11/22 14:10 Urine RBC Rare /hpf (0-2) 11/11/22 14:10 Urine WBC 0-4 /hpf (0-5) H 11/11/22 14:10 Ur Squamous Epith Cells Rare /hpf (0-5) 11/11/22 14:10 Amorphous Sediment 1+ /hpf 11/11/22 14:10 Urine Bacteria None /hpf (NONE) 11/11/22 14:10 Urine Mucus 1+ /hpf 11/11/22 14:10 Vitals Last Vital Signs Temp 98.0 F 11/12/22 09:36 Pulse 80 11/12/22 09:36 Resp 16 11/12/22 09:36 BP 116/72 11/12/22 09:36 Pulse Ox 92 11/12/22 09:36 O2 Del Method 11/12/22 09:36 O2 Flow Rate 2 11/11/22 20:34 Discharge Plan Discharge Patient Disposition: Home Condition: Stable Prescriptions: New ibuprofen 800 mg Tablet 800 mg PO Q8H Qty: 30 0RF hydrocodone-acetaminophen 5-325 mg Tablet 1 tab PO Q4H PRN (Reason: Moderate To Severe Pain) Qty: 30 0RF docusate sodium 100 mg Capsule 100 mg PO BID Qty: 60 0RF Discharge Orders: Discharge Order (Routine); Ordered 11/12/22 Ordered By: Shantel Yeh Referrals: Dr. Rajesh Antoine MD [Other] (Gynecologic Senior Svp at [facility]) Patient Instructions: Endometriosis (GEN), Abdominal Pain (ED), Salpingo-Oophorectomy (GEN), OB Abdominal Surgery - [facility], OB Food/Drug Interaction Guide, Opioid Safety Discharge Attestations Time Spent in Discharge Care*: less than 30 min Quality Metrics Clinical Quality Measures [ No reported AMI, CVA or VTE this stay] Coding Level of Care Code Acute Chg FW DC note Diagnoses Endometriosis N80.9
[2022-11-12 17:00] VITALS: BP 142/59; PULSE 89; RESP 16; TEMP 36.9; O2SAT 94
== END 2022-11-12 17:14 | disposition home or self-care (01) | DRG 743 ==
LOC: ER 11-11 04:00 → OBGYN 11-11 04:13
PROVIDERS: Admitting Provider Obstetrics & Gynecology; Emergency Provider Emergency Medicine; PCP Family Medicine; Visit Provider Obstetrics & Gynecology
PROC: 0UT10ZZ Resection of Left Ovary, Open Approach (ICD-10-PCS; CPT 49320; principal; 2022-11-11 13:30)
PROC: 0UT10ZZ Resection of Left Ovary, Open Approach (ICD-10-PCS; CPT 58720; 2022-11-11 13:30)
DX: N80.103 Endometriosis of bilateral ovaries, unspecified depth (principal); N73.6 Female pelvic peritoneal adhesions (postinfective); I10 Essential (primary) hypertension; Z87.891 Personal history of nicotine dependence
CPT/HCPCS: 36415; 74177; 76830; 76856; 80053; 81001; 83690; 84703; 85025; 85027; 88305; 96374; 96375; 96376; 99285; J0131; J0330; J0690; J1100; J1170; J1885; J2250; J2270; J2405; J2710; J2765; J3010; J3490; J7030; J7120; J7121; Q9967

== ENCOUNTER 2022-11-16 15:56 | Emergency (ER) | payer OTHER, SELFPAY ==
[2022-11-16 16:06] VITALS: BP 141/96; PULSE 89; RESP 14; TEMP 36.9; O2SAT 98
--- NOTE | 2022-11-16 16:31 | USR_ITS ---
PROCEDURE INFORMATION: Exam: US Duplex Lower Extremity Veins, Bilateral Exam date and time: 11/16/2022 4:49 PM Age: 37 years old Clinical indication: Swelling (edema) of limb; Lower extremity, bilateral; Prior surgery; Surgery date: 3-7 days post-operative; Additional info: Post op concern for dvt TECHNIQUE: Imaging protocol: Real-time Duplex ultrasound of the bilateral extremities with 2-D farley scale, color Doppler flow and spectral waveform analysis with image documentation. Complete exam focused on the bilateral lower extremity veins. COMPARISON: US pelvic with transvaginal 11/11/2022 1:47 AM FINDINGS: Right deep veins: Unremarkable. The common femoral, femoral, proximal profunda femoral and popliteal veins are patent without thrombus. Normal Doppler waveforms. Normal compressibility and/or augmentation response. Right superficial veins: Saphenofemoral junction is patent without thrombus. Left deep veins: Occlusive or near occlusive thrombus in the posterior tibial calf veins. The common femoral, femoral, proximal profunda femoral and popliteal veins are patent without thrombus. Left superficial veins: Saphenofemoral junction is patent without thrombus. Soft tissues: Unremarkable. US/[place] [id number] IMPRESSION: 1. Occlusive or near occlusive thrombus in the left posterior tibial calf veins. 2. No DVT in the right lower extremity.
--- NOTE | 2022-11-16 16:32 | ED_ITS ---
HPI - Extremity Problem General: Chief complaint: Extremity Injury, Lower Stated complaint: pain in calves and had surgery on Wednesday Time Seen by Provider: 11/16/22 16:14 History of Present Illness: Patient comes in with concerns for blood clot. States that 5 days ago she had a partial hysterectomy. States that 3 days after that she developed pain in her calves which she describes as posterior, sharp, constant. She also has been noticed a minimal amount of swelling in her lower legs. Denies any shortness of breath. Associated symptoms: Deny chest pain, fever(s) or rash Review of Systems Const: Denies: fever(s) or body aches Eyes: Denies: change in vision or blurry vision ENMT: Denies: throat pain or odynophagia Card: Denies: chest pain or palpitations Resp: Denies: dyspnea or productive cough GI: Denies: abdominal pain, nausea or vomiting : Denies: flank pain or dysuria Musc: Denies: neck pain or back pain Skin/Breast: Denies: rash or pruritus Neuro: Denies: headache(s) or numbness in extremities Psych: Denies: anxiety or change in appetite Endo: Denies: polyuria or excessive sweating PFSH ED PFSH: Medical History Blood type O- Essential hypertension Not on medication. Fluctuates with weight. Surgical History H/O arthroscopic knee surgery (~2002) Right knee scope and cartilage removal History of appendectomy (~03/2018) Hx of breast reduction, elective (~1997) Bilateral. Performed at [facility] in [place], [place]. Family History Father Hypertension Heart disease Grandmother Diabetes PATERNAL Mother Hypercholesteremia Grandfather Hypercholesteremia MATERNAL Stroke MATERNAL Family/Other Breast cancer MATERNAL AUNTS Prostate cancer PATERNAL UNCLE Mesothelioma PATERNAL UNCLE Social History Smoking and tobacco status: former smoker Quit status (tobacco): has quit using tobacco Year quit tobacco: 2008 Former quit date comment: CHEWED TOBACCO X 1 YEAR Alcohol intake: current Alcohol intake frequency: holidays/special occasions only Additional social history: well- balanced meals Physical Exam Const: COMMON NORMALS: no acute distress, patient oriented x3, healthy appearing and alert HENMT: COMMON NORMALS: normocephalic and atraumatic HEAD & SCALP: normocephalic and atraumatic Eye: COMMON NORMALS: Equal, round and reactive pupils present and EOMs intact bilaterally PUPIL: Yes Equal, round and reactive pupils present Neck/C-Spine: COMMON NORMALS: full ROM and supple Resp: COMMON NORMALS: normal respiratory effort, No retractions and No use of accessory muscles Cardio: COMMON NORMALS: regular rate and regular rhythm RATE: regular rate RHYTHM: regular rhythm GI: COMMON NORMALS: Normal to inspection, nondistended, normoactive bowel sounds present, Soft to palpation and non-tender PALPATION: Yes Soft to palpa tion Back/Pelvis: COMMON NORMALS: thoracic and lumbar spine normal to inspection and no thoracic nor lumbar tenderness Extremity: COMMON NORMALS: full ROM OTHER: Tenderness to palpation of bilateral posterior lower legs Neuro: COMMON NORMALS: patient oriented x3 SENSORIUM/ORIENTATION: Yes alert Psych: COMMON NORMALS: mental status grossly normal and cooperative Skin: COMMON NORMALS: no rashes or lesions noted and no wounds GENERAL SKIN EXAM: no rashes or lesions noted Course Vital Signs: Vital signs: Vital Signs Temperature 98.5 F 11/16/22 16:06 Pulse Rate 89 11/16/22 16:06 Respiratory Rate 14 11/16/22 16:06 Blood Pressure 141/96 11/16/22 16:06 Pulse Oximetry 98 11/16/22 16:06 Oxygen Delivery Me thod 11/16/22 16:06 MDM - Extremity (Nontraumatic) Medical Decision Making Patient comes in with concerns for blood clot. States that 5 days ago she had a partial hysterectomy. States that 3 days after that she developed pain in her calves which she describes as posterior, sharp, constant. She also has been noticed a minimal amount of swelling in her lower legs. Denies any shortness of breath. On physical exam she has tenderness to palpation her posterior calves bilateral. Will check ultrasound, and reassess. On reassessment I talked to the patient about the test results. We will give her a shot of Lovenox here and discharged with a prescription for Eliquis, and precautions to return for worsening or changing symptoms. Lab Data Radiology Impressions Venous Duplex 11/16/22 16:31 IMPRESSION: 1. Occlusive or near occlusive thrombus in the left posterior tibial calf veins. 2. No DVT in the right lower extremity. Discharge Plan Discharge Patient Disposition: Home Clinical Impression: DVT (deep venous thrombosis) Condition: Stable Prescriptions: New Eliquis DVT-PE Treat 30D Start 5 mg (74 tabs) tablets,dose pack 5 mg PO BID Qty: 74 0RF No Action ibuprofen 800 mg Tablet 800 mg PO Q8H Qty: 30 0RF hydrocodone-acetaminophen 5-325 mg Tablet 1 tab PO Q4H PRN (Reason: Moderate To Severe Pain) Qty: 30 0RF docusate sodium 100 mg Capsule 100 mg PO BID Qty: 60 0RF Discharge Orders: Discharge ED (Routine); Ordered 11/16/22 Ordered By: Cipriano Yu Referrals: Spencer Vides MD [Primary Care Provider] - Patient Instructions: Apixaban (By mouth) (Eliquis), Deep Vein Thrombosis (ED) Coding Level of Care Code ED Coke Handling Supervisor for Chg Fwd Exam Comprehensive
[2022-11-16] MEDS: enoxaparin 100 mg/mL Syringe SUBCUT (18:14)
== END 2022-11-16 18:12 | disposition home or self-care (01) ==
PROVIDERS: Emergency Provider Emergency Medicine; PCP Family Medicine
DX: I82.442 Acute embolism and thrombosis of left tibial vein (principal); M79.662 Pain in left lower leg; M79.661 Pain in right lower leg
CPT/HCPCS: 93970; 96372; 99284; J1650

== ENCOUNTER 2023-03-03 06:00 | Outpatient (RCR) | payer OTHER, SELFPAY | END 2023-03-28 23:59 | disposition home or self-care (01) | LOC: SOT 06:00 | PROVIDERS: Visit Provider Nurse Practitioner | DX: G56.00 Carpal tunnel syndrome, unspecified upper limb (principal) | CPT/HCPCS: 97165 ==

== ENCOUNTER 2023-03-09 14:56 | Outpatient (RCR) | payer OTHER, SELFPAY | END 2023-03-28 23:59 | disposition home or self-care (01) | LOC: SPT 14:56 | PROVIDERS: PCP Nurse Practitioner; Visit Provider Psychiatry & Neurology Epilepsy | DX: M54.50 Low back pain, unspecified (principal) | CPT/HCPCS: 97110; 97161 ==

== ENCOUNTER 2023-03-29 06:00 | Outpatient (RCR) | payer OTHER, SELFPAY | END 2023-04-28 23:59 | disposition home or self-care (01) | LOC: SPT 06:00 | PROVIDERS: PCP Nurse Practitioner; Visit Provider Psychiatry & Neurology Epilepsy | DX: M54.50 Low back pain, unspecified (principal) | CPT/HCPCS: 97110 ==

== ENCOUNTER 2023-04-29 06:00 | Outpatient (RCR) | payer OTHER, SELFPAY | END 2023-05-28 23:59 | disposition home or self-care (01) | LOC: SPT 06:00 | PROVIDERS: PCP Nurse Practitioner; Visit Provider Psychiatry & Neurology Epilepsy | DX: M54.50 Low back pain, unspecified (principal) | CPT/HCPCS: 97110 ==

== ENCOUNTER 2023-10-12 11:31 | Outpatient (RCR) | payer OTHER, SELFPAY | END 2023-10-28 23:59 | disposition home or self-care (01) | LOC: SPT 11:31 | PROVIDERS: PCP Nurse Practitioner; Visit Provider Nurse Practitioner | DX: M54.50 Low back pain, unspecified (principal) | CPT/HCPCS: 97110; 97161 ==

== ENCOUNTER 2023-10-29 06:00 | Outpatient (RCR) | payer OTHER, SELFPAY | END 2023-11-28 23:59 | disposition home or self-care (01) | LOC: SPT 06:00 | PROVIDERS: PCP Nurse Practitioner; Visit Provider Nurse Practitioner | DX: M54.50 Low back pain, unspecified (principal) | CPT/HCPCS: 97110 ==

== ENCOUNTER 2023-11-29 06:00 | Outpatient (RCR) | payer OTHER, SELFPAY | END 2023-12-15 23:59 | disposition home or self-care (01) | LOC: SPT 06:00 | PROVIDERS: PCP Nurse Practitioner; Visit Provider Nurse Practitioner | DX: M54.50 Low back pain, unspecified (principal) | CPT/HCPCS: 97110 ==

== ENCOUNTER 2024-01-10 09:10 | Emergency (ER) | payer OTHER, SELFPAY ==
[2024-01-10 09:12] VITALS: BP 179/114; PULSE 96; RESP 16; TEMP 36.7; O2SAT 97; BMI 34.1
--- NOTE | 2024-01-10 09:19 | XR_ITS ---
WS: [id number] PORTABLE CHEST HISTORY: cough, dyspnea COMPARISON: None available. Lungs are clear. Benign granuloma LEFT apex. No pneumonia. No pleural effusion or pneumothorax. Cardiac size: Normal. Mediastinum/Aorta: Normal mediastinum. No osseous abnormality seen. IMPRESSION: Unremarkable portable chest.
--- NOTE | 2024-01-10 09:19 | ED_ITS ---
HPI - URI/Sore Throat General: Chief Complaint: Upper Respiratory Infection Stated Complaint: sob,coughing Time Seen by Provider: 01/10/24 09:11 Source: patient Mode of arrival: ambulatory Limitations: no limitations History of Present Illness: Patient is a 39-year-old female presents to ED today with a complaint of cough, nasal congestion, sinus pain/pressure, and shortness of breath. She states sy mptoms initially began 3 to 4 weeks ago. She felt like approximately a week ago she was getting better but then felt like her cough worsened. No hemoptysis. She has not noticed any orthopnea or PND. No weight gain or swelling to her legs. She has no chest pain. MD elicited complaint: cough, rhinorrhea, nasal congestion, sinus pain and other (dysnpea) Onset (ago): week(s) Consistency: constant Severity: moderate Description of mucous: clear Able to tolerate fluids by mouth: Yes Exacerbating factors: other (coughing) Relieving factors: nothing Associated symptoms: Reports nasal congestion and sinus pain; Deny abdominal pain, chills, chest pain, diarrhea, ear or mastoid pain, fever(s), headache(s), nausea or vomiting Treatments prior to arrival: none Review of Systems Const: Denies: fever(s), chills, body aches, fatigue or malaise Eyes: Denies: change in vision, blurry vision, photophobia, eye discomfort or eye discharge ENMT: Reports: nasal discharge, nasal congestion and sinus pain; Denies: throat pain, enlarged tonsils, odynophagia, swelling of lips/tongue, oral sores, ear or mastoid pain, ear discharge or post nasal drip Card: Denies: chest pain, palpitations, swelling of feet/ankles, lightheadedness, syncope or pre-syncope Resp: Reports: dyspnea, non-productive cough, pain on inspiration and chest congestion; Denies: productive cough, wheezing or hemoptysis GI: Denies: abdominal pain, nausea, vomiting or diarrhea Musc: Denies: neck pain Skin/Breast: Denies: rash Neuro: Denies: headache(s) All/Imm: Denies: facial swelling or seasonal rhinorrhea PFSH ED PFSH: Medical History Mass of ovary Abdominal pain Blood type O- Essential hypertension Not on medication. Fluctuates with weight. Surgical History Hx of breast reduction, elective (~1997) Bilateral. Performed at [facility] in [place], [place]. H/O arthroscopic knee surgery (~2002) Right knee scope and cartilage removal History of appendectomy (~03/2018) Family History Father Hypertension Heart disease Grandmother Diabetes PATERNAL Mother Hypercholesteremia Grandfather Hypercholesteremia MATERNAL Stroke MATERNAL Family/Other Breast cancer MATERNAL AUNTS Prostate cancer PATERNAL UNCLE Mesothelioma PATERNAL UNCLE Social History Substance/Drug Use: former Date of last use: 2012 - MARIJUANA USE Physical Exam Const: COMMON NORMALS: no acute distress, patient oriented x3, no limitations, alert and well nourished GENERAL APPEARANCE: cooperative NUTRITIONAL APPEARANCE: overweight ORIENTATION/CONSCIOUSNESS: Yes awake, Yes oriented to person, Yes oriented to place and Yes oriented to time HENMT: COMMON NORMALS: normocephalic, atraumatic and Normal external nose present HEAD & SCALP: normal to inspection, normocephalic and atraumatic FACE & SINUS: sinus tenderness NOSE: Normal external nose present Eye: GENERAL EYE: appearance normal, both eyes and all related structures Neck/C-Spine: COMMON NORMALS: no lymphadenopathy Chest: COMMONS NORMALS: normal inspection of the chest and normal palpation of entire chest wall Resp: COMMON NORMALS: normal respiratory effort and clear to auscultation bilaterally AUSCULTATION: clear to auscultation bilaterally Cardio: COMMON NORMALS: regular rate and regular rhythm RATE: regular rate RHYTHM: regular rhythm Neuro: COMMON NORMALS: patient oriented x3 SENSORIUM/ORIENTATION: Yes alert, Yes oriented to person, Yes oriented to place and Yes oriented to time Skin: COMMON NORMALS: no rashes or lesions noted GENERAL SKIN EXAM: no rashes or lesions noted Course Vital Signs: Vital signs: Vital Signs Temperature 98.0 F 01/10/24 09:12 Pulse Rate 96 01/10/24 09:12 Respiratory Rate 16 01/10/24 09:12 Blood Pressure 179/114 01/10/24 09:12 Pulse Oximetry 97 01/10/24 09:12 Oxygen Delivery Me thod Room Air 02/12/24 09:12 MDM - URI/Sore Throat Medical Decision Making Patient clinically appears in no acute distress. Tachycardic, febrile, or hypoxic. Her CXR today is unremarkable. Respiratory panel collected and pending. Due to length of symptoms I will go ahead and treat for bacterial bronchitis with doxycycline, steroids, albuterol inhaler. Recommend follow-up with her PCP in 1 to 2 weeks if symptoms do not seem to be improving. Differential Diagnosis Likely upper respiratory infection, sinusitis, viral infection and bronchitis Medical Records I reviewed the patient's medical records. All radiology interpretation(s) finalized by discharge Discharge Plan Discharge Patient Disposition: Home Clinical Impression: Bronchitis Condition: Stable Prescriptions: New prednisone 10 mg tablet 10 mg PO DAILY 10 Days Qty: 27 0RF Rx Instructions: 6 tabs on days 1-2, 5 tabs on days 3, 4 tabs on day 4, 3 tabs on day 5, 2 tabs on day 6, 1 tab on day 7 doxycycline monohydrate 100 mg capsule 100 mg PO Q12H 10 Days Qty: 20 0RF albuterol sulfate 90 mcg/actuation HFA aerosol inhaler 2 inh INHALATION Q4H PRN (Reason: shortness of breath or wheezing) Qty: 6.7 0RF No Action ibuprofen 800 mg Tablet 800 mg PO Q8H Qty: 30 0RF hydrocodone-acetaminophen 5-325 mg Tablet 1 tab PO Q4H PRN (Reason: Moderate To Severe Pain) Qty: 30 0RF docusate sodium 100 mg Capsule 100 mg PO BID Qty: 60 0RF Eliquis DVT-PE Treat 30D Start 5 mg (74 tabs) tablets,dose pack 5 mg PO BID Qty: 74 0RF Discharge Orders: Discharge ED (Routine); Ordered 01/10/24 Ordered By: Blanca Morfin Referrals: Neyda Dietz FNP [Primary Care Provider] - Patient Instructions: Acute Bronchitis (ED) Coding Level of Care Code ED Tax Services Manager for Apoorva Paez
[2024-01-10 11:47] LABS: Adenovirus Not Detected (NOT DETECT); Chlamydia Pneumoniae Not Detected (NOT DETECT); Human Metapneumovirus Not Detected (NOT DETECT); Human Rhinovirus/Enterovirus Not Detected (NOT DETECT); Influenza A Not Detected (NOT DETECT); Influenza A H1 Not Detected (NOT DETECT); Influenza A H1-2009 Not Detected (NOT DETECT); Influenza A H3 Not Detected (NOT DETECT); Influenza B Not Detected (NOT DETECT); Mycoplasma Pneumoniae Not Detected (NOT DETECT); Parainfluenza Virus Type 1 Not Detected (NOT DETECT); Parainfluenza Virus Type 2 Not Detected (NOT DETECT); Parainfluenza Virus Type 3 Not Detected (NOT DETECT); Parainfluenza Virus Type 4 Not Detected (NOT DETECT); Respiratory Syncytial Virus A Not Detected (NOT DETECT); Respiratory Syncytial Virus B Not Detected (NOT DETECT); SARS-COV-2 Not Detected (NOT DETECT)
[2024-01-10 11:50] LABS: Coronavirus 229E,HKU1,NL63,OC4 Detected (NOT DETECT)
== END 2024-01-10 09:44 | disposition home or self-care (01) ==
PROVIDERS: Emergency Provider Physician Assistant; PCP Nurse Practitioner
DX: J40 Bronchitis, not specified as acute or chronic (principal); Z79.01 Long term (current) use of anticoagulants; I10 Essential (primary) hypertension
CPT/HCPCS: 71045; 87486; 87581; 87633; 99284

== ENCOUNTER → 2025-01-04 09:34 | Outpatient (BNVA) | payer OTHER, SELFPAY | PROVIDERS: PCP Nurse Practitioner; Visit Provider Nurse Practitioner Women's Health | DX: E89.41 Symptomatic postprocedural ovarian failure (principal) | CPT/HCPCS: 82670 ==

== ENCOUNTER → 2025-09-07 09:13 | Outpatient (BNVA) | payer OTHER, SELFPAY | PROVIDERS: PCP Nurse Practitioner; Visit Provider Nurse Practitioner Women's Health | DX: Z01.89 Encounter for other specified special examinations (principal); Z79.890 Hormone replacement therapy | CPT/HCPCS: 84270; 84402; 84403 ==

== ENCOUNTER → 2025-10-16 10:38 | Outpatient (BNVA) | payer OTHER, SELFPAY | PROVIDERS: PCP Nurse Practitioner; Visit Provider Nurse Practitioner Women's Health | DX: R68.82 Decreased libido (principal) | CPT/HCPCS: 84403 ==

== ENCOUNTER → 2025-11-28 16:08 | Outpatient (BNVA) | payer OTHER, SELFPAY | PROVIDERS: PCP Nurse Practitioner; Visit Provider Nurse Practitioner Women's Health | DX: E89.41 Symptomatic postprocedural ovarian failure (principal); R68.82 Decreased libido | CPT/HCPCS: 82670 ==